=== PATIENT | female | born 1950 | race Caucasian/White ===

== ENCOUNTER 2022-11-11 10:11 | Day surgery (SDC) | payer MEDICARE, BC, SELFPAY ==
[2022-11-11 10:50] VITALS: BP 160/68; PULSE 74; RESP 16; TEMP 36.2; O2SAT 97; BMI 34.4
[2022-11-11] MEDS: Lactated Ringers 1,000 ML 15 ML IV (10:50)
[2022-11-11 11:16] LABS: Bedside Glucose 120 mg/dL (74-106)
[2022-11-11] MEDS: Cefazolin 2 GM in 0.9% Normal Saline 100 ML IV (12:15)
[2022-11-11] MEDS: Bupivacaine 0.25% 30 ML Vial (12:22)
[2022-11-11] MEDS: Lidocaine 1% (20 ml mdv) 20 ML Vial (12:22)
--- NOTE | 2022-11-11 12:58 | OP.PCM_ITS ---
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 Placed in the supine position. Under excellent MAC anesthetic the right neck was ultrasound internal jugular vein was identified the neck and chest were marked appropriately. The neck and chest were then sterilely prepped and draped in the usual fashion. Local was injected into the neck. Seldinger's technique was used to gain access into the right internal jugular vein. Guidewire was placed over the needle the needle was removed fluoroscopy was used to confirm proper placement of the guidewire. Local was injected into the chest. Incision was made. Electrocautery was used to create a pocket for the port. A skin mynor was made in the neck dilator and sheath were placed over the guidewire removing the guidewire and dilator. Single lumen catheter was placed over the sheath. The sheath was removed. Fluoroscopy was used to confirm proper length. The catheter was then tunneled from the pocket created over the collarbone into the chest area. From the neck it was cut to length. Locking hub was placed on the catheter the port was placed onto the catheter and the tube was secured with a locking hub.The port was then secured into the pocket created with 2 sutures of 2-0 Prolene. It was flushed with 5 cc of hep flush. Skin incisions were closed with subcuticular stitches of 4-0 Monocryl. Dermabond was applied sterile dressings were applied and the patient tolerated the procedure well. Admit VTE Documentation VTE Present on Admission: No VTE Mechan Device Prophylaxis: SCD's VTE Pharm Prophylaxis ordered?: No Reason prophylaxis not ordered:: Treatment Not Indicated
--- NOTE | 2022-11-11 13:06 | DCINST_ITS ---
Discharge Instructions Procedure Port-A-Cath Diet Discharge Diet: No restrictions (Pain medication may cause nausea. You should typically eat light foods as you take your pain medication.) Activity Discharge Activity: May Shower (with the bandage in place 1-2 days after surgery. DO NOT SHOWER WHEN YOUR PORT IS ACCESSED.) Additional Activity Instructions:: May not drive, work with heavy equipment, or sign legal documents for [address]. [address] if you are no longer taking narcotic pain medications. You may drive when you are no longer taking pain medications. Dressing / Incision Additional Dressing/Incision Instructions:: Leave the bandage on for 2-3 days. When you remove the bandage, leave the steri-strips intact until they fall off. Follow Up Care Please Follow Up With: Carly Kemp PA-C When: Call office to schedule an appointment to be seen in 7 days. Test Results: Test results from this visit will be discussed in further detail at your follow- up appointment, if applicable. Discharge Plan Admission Attending Provider: Wilber Mane Primary Care Provider: Kristy Paredes Discharge Orders/Prescriptions Prescriptions: New oxycodone-acetaminophen [Percocet] 5-325 mg tablet 1 tab PO Q4H PRN (Reason: pain) 5 Days Qty: 20 0RF No Action atorvastatin 40 mg tablet 40 mg PO QHS trazodone 50 mg tablet 50 mg PO QHS lisinopril 20 mg tablet 20 mg PO QHS Toujeo SoloStar U-300 Insulin 300 unit/mL (1.5 mL) insulin pen 74 unit SUBCUT QHS omeprazole 20 mg Capsule,Delayed Release(Dr/Ec) 20 mg PO DAILY Referrals / Follow Up: Kristy Paredes MD [Primary Care Provider] - Disposition Disposition (needs filled in before D/C Order can be placed): Home, Self Care
[2022-11-11 13:11] VITALS: BP 139/64; BP 160/68; PULSE 69; RESP 12; TEMP 36.6; O2SAT 98
[2022-11-11 13:15] VITALS: BP 130/61; BP 160/68; PULSE 67; RESP 16; O2SAT 97
--- NOTE | 2022-11-11 13:15 | RAD_ITS ---
STUDY: X-RAY CHEST REASON FOR EXAM: Female, 72 years old. PORT PLACEMENT TECHNIQUE: Single AP portable view of the chest. COMPARISON: None. FINDINGS: EKG leads overlie the chest. A right subclavian port is in place, tip is in the distal SVC, no pneumothorax or mediastinal shift. The lungs are clear and expanded. There is no demonstrated pleural abnormality. Normal size heart. Normal mediastinum and da. Normal visualized pulmonary arteries. There is atherosclerotic calcification of the aortic arch with tortuosity. There are diffuse degenerative changes of the visualized thoracic spine. Normal visualized ribs, clavicles, and shoulders. There is no demonstrated abnormality of the visualized soft tissue structures of the upper abdomen. RAD/CXR for Line Placement IMPRESSION: No acute pulmonary process Electronically Signed: Kwaku Terry MD at 13:32 EDT ,
[2022-11-11 13:20] VITALS: BP 135/64; BP 160/68; PULSE 67; RESP 12; O2SAT 97
[2022-11-11 13:27] VITALS: BP 137/63; BP 160/68; PULSE 67; RESP 16; TEMP 36.2; O2SAT 98
[2022-11-11 14:32] VITALS: BP 130/53; BP 160/68; PULSE 67; RESP 18; TEMP 35.9; O2SAT 98
== END 2022-11-11 14:35 | disposition home or self-care (01) ==
LOC: SDC 10:13 → AC 10:15
PROVIDERS: PCP Internal Medicine; Referring Provider Surgery; Visit Provider Surgery
PROC: (CPT 36561; principal; 2022-11-11 12:15)
DX: C50.412 Malignant neoplasm of upper-outer quadrant of left female breast (principal); E11.9 Type 2 diabetes mellitus without complications; K21.9 Gastro-esophageal reflux disease without esophagitis; I10 Essential (primary) hypertension; Z85.3 Personal history of malignant neoplasm of breast; Z17.0 Estrogen receptor positive status [ER+]
CPT/HCPCS: 36561; 00532; 71045; 77001; 82962; C1788; J2405

== ENCOUNTER → 2022-11-15 | Outpatient (CLI) | payer MEDICARE, BC, SELFPAY ==
--- NOTE | 2022-11-15 13:00 | ECHOD_ITS ---
Reason For Study: CARDIOTOXICITY BASELINE Procedure This was a 2D Doppler, Color Flow transthoracic echocardiogram. Myocardial strain analysis was performed in this exam to aid in the assessment of cardiac function. Exam performed in department. Left Ventricle Normal left ventricle. The global longitudinal strain = -15.6% (borderline). The estimated ejection fraction is 55-60 %. Right Ventricle Normal right ventricle. Normal systolic function. Atria Normal left atrium. Normal right atrium. Mitral Valve The mitral valve is structurally normal. No prolapse or stenosis seen. Trivial eccentric mitral valve insufficiency. Tricuspid Valve Normal tricuspid valve. No tricuspid valve insufficiency. Aortic Valve Normal aortic valve. Pulmonic Valve The pulmonic valve is not well visualized. Pericardium/Pleural No pericardial effusion. MMode/2D Measurements & Calculations LVIDd: 4.4 cm IVSd: 1.1 cm Ao root diam: 3.1 cm LVIDs: 3.3 cm LVPWd: 1.1 cm RVDd: 3.2 cm FS: 25.3 % LAV(MOD-bp): 56.6 ml LA A4 area: 19.0 cm2 LA dimension(2D): 3.8 cm LAV(MOD-bp) Indexed: 28.9 ml/m2 LAV(MOD-sp2): 56.1 ml LAV(MOD-sp4): 56.1 ml RA A4 area: 14.0 cm2 Time Measurements MV dec time: 0.25 sec Doppler Measurements & Calculations MV E max jonathan: 91.4 cm/sec Lat Peak E' Jonathan: 7.3 cm/sec Med Peak E' Jonathan: 6.3 cm/sec MV A max jonathan: 107.3 cm/sec E/E' lat: 12.6 E/E' med: 14.6 MV E/A: 0.85 MV dec slope: 376.0 cm/sec2 Ao V2 max: 133.5 cm/sec LV V1 max: 89.7 cm/sec Ao max P.1 mmHg LV V1 max P.2 mmHg Ao V2 mean: 92.1 cm/sec LV V1 mean P.7 mmHg Ao mean P.9 mmHg LV V1 mean: 62.0 cm/sec Ao V2 VTI: 33.6 cm LV V1 VTI: 21.6 cm AV (velocity ratio): 0.65 PA V2 max: 107.0 cm/sec TR max jonathan: 261.2 cm/sec TR max P.3 mmHg ECHO/Echo Complete Interpretation Summary The estimated ejection fraction is 55-60 %. Normal LV systolic function Ordering Physician: Vishnu Alberto Referring Physician: Kristy Paredes Performed By: Lily Serrato RDCS, RVT
== END | disposition home or self-care (01) ==
LOC: CVS 12:58
PROVIDERS: PCP Internal Medicine; Referring Provider Internal Medicine Hematology & Oncology; Visit Provider Internal Medicine Hematology & Oncology
DX: C50.412 Malignant neoplasm of upper-outer quadrant of left female breast (principal); Z17.0 Estrogen receptor positive status [ER+]; R06.00 Dyspnea, unspecified; R06.89 Other abnormalities of breathing
CPT/HCPCS: 93306